=== PATIENT | female | born 1980 | race Caucasian/White ===

== ENCOUNTER 2018-06-02 03:54 | Emergency (ER) | payer BC ==
[2018-06-02 04:19] VITALS: TEMP 98.5; O2SAT 98
[2018-06-02] MEDS ORDERED: Sodium Chloride 0.9% 1,000 ML IV STA (04:35)
--- NOTE | 2018-06-02 04:57 | ED PDOC ---
HPI: Female Pain Time Seen by Provider: 06/02/18 04:33 Chief Complaint (Nursing): Female Genitourinary Chief Complaint (Provider): Vaginal Bleeding History Per: Patient History/Exam Limitations: no limitations Onset/Duration Of Symptoms: Hrs (x6) Current Symptoms Are (Timing): Still Present Additional Complaint(s): Patient is a 37 year old female who presents to the ED for evaluation of irregular vaginal bleeding x6 hours. Patient reports her LMP was 05/13/18, how ever only lasted two days when her cycle usually lasts 4-5. Patient reports last night she developed sudden onset of heavy vaginal bleeding that is described as "clots". Patient reports her cycle is normally regular, coming every 30 days. Patient reports mild lower abdominal cramping. Took no medications [employer]. No other complaints. PMD: [facility] in [place] Past Medical History Reviewed: Historical Data, Nursing Documentation, Vital Signs Vital Signs: Last Vital Signs Temp 98.5 F 06/02/18 04:16 Pulse 88 06/02/18 04:16 Resp 14 06/02/18 04:16 BP 112/79 06/02/18 04:16 Pulse Ox 98 06/02/18 04:16 - Medical History PMH: No Chronic Diseases - Surgical History Surgical History: No Surg Hx - Family History Family History: States: Unknown Family Hx - Social History Current smoker - smoking cessation education provided: No Alcohol: None Drugs: Denies - Home Medications Home Medications: Ambulatory Orders Medication Instructions Recorded RX: Naproxen 500 mg PO BID PRN #20 tab 06/02/18 - Allergies Allergies/Adverse Reactions: Allergies Allergy/AdvReac Type Severity Reaction Status Date / Time No Known Allergies Allergy Verified 06/02/18 04:16 Review of Systems ROS Statement: Except As Marked, All Systems Reviewed And Found Negative Gastrointestinal: Positive for: Abdominal Pain (lower) Genitourinary Female: Positive for: Vaginal Bleeding Physical Exam - Reviewed Nursing Documentation Reviewed: Yes Vital Signs Reviewed: Yes - Physical Exam Appears: Positive for: Well, Non-toxic, No Acute Distress Head Exam: Positive for: ATRAUMATIC, NORMOCEPHALIC Skin: Positive for: Normal Color, Warm, Dry Eye Exam: Positive for: Normal appearance ENT: Positive for: Other (Mucus membranes moist. Airway patent, (-) stridor. ) Neck: Positive for: Painless ROM, Supple Cardiovascular/Chest: Positive for: Regular Rate, Rhythm Respiratory: Positive for: Normal Breath Sounds Gastrointestinal/Abdominal: Positive for: Soft, Tenderness (mild suprapubic). Negative for: Mass, Distended, Guarding Back: Negative for: L CVA Tenderness, R CVA Tenderness, Vertebral Tenderness Extremity: Positive for: Normal ROM. Negative for: Deformity Neurologic/Psych: Positive for: Alert, Oriented (x3), Gait (steady in ED). Negative for: Aphasia, Facial Droop - Laboratory Results Result Diagrams: 06/02/18 04:59 06/02/18 04:59 Urine POC: Negative - ECG O2 Sat by Pulse Oximetry: 98 (RA) Pulse Ox Interpretation: Normal Medical Decision Making Medical Decision Making: Initial Impression: irregular vaginal bleeding Plan: IV access CBC CMP Type and Screen TV U/S U/A Upreg Toradol 30mg IVP 1L NS bolus 0455 Patient in U/S. 06:25 US Transvaginal reviewed, USArad report follows Findings: The uterus measures 12x4.1x3.2 cm. Anteverted uterus. Heterogeneous uterus. Thickened endometrial cavity containing a heterogeneous echogenic material, probably clots. Normal right ovary. Normal left ovary. Impression: Hemorrhagic fluid/blood clots in endometrial cavity. Mildly heterogeneous uterus. Normal ovaries without evidence of ovarian torsion. No evidence of intrauterine . 0700 U/A (+) hematuria (consistent with reports of vaginal bleeding) CBC and CMP unremarkable. H&H stable. On re-evaluation, patient reports improvement of symptoms. On exam, patient remains AAOx3, in no acute distress. Lungs clear to auscultation, cardiac RRR, abdomen soft, non-tender, repeat neuro exam shows no focal findings. Vitals stable. Lab/Diagnostic results d/w the patient in great detail. Diagnosis of irregular menses d/w the patient. Based on history, exam and diagnostic results, plan will be for outpatient follow up with OBGYN. Patient instructed to follow-up with pmd / referral provided / the clinic in 1- 2 days without fail. Advised to take medication as prescribed. Return to the emergency room at any time for any new or worsening symptoms. Patient states she fully agrees with and understands discharge instructions. States that she agrees with the plan and disposition. Verbalized and repeated discharge instructions and plan. I have given the patient opportunity to ask any additional questions. Disposition - Clinical Impression Clinical Impression: Irregular menses, Menstrual cramps - Patient ED Disposition Is Patient to be Admitted: No Counseled Patient/Family Regarding: Studies Performed, Diagnosis, Need For Followup, Rx Given - Disposition Referrals: your, OBGYN [Other] [facility] [Outside] Disposition: Routine/Home Disposition Time: 07:00 Condition: STABLE Additional Instructions: The emergency medical care you received today was directed at your acute symptoms. If you were prescribed any medication, please fill it and take as directed. It may take several days for your symptoms to resolve. Return to the Emergency Department if your symptoms worsen, do not improve, or if you have any other problems. Please contact your doctor in 2 days for re-evaluation and follow up / or call one of the physicians/clinics you have been referred to that are listed on the Patient Visit Information form that is included in your discharge packet. Bring any paperwork you were given at discharge with you along with any medications you are taking to your follow up visit. Our treatment cannot replace ongoing me dical care by a primary care provider (PCP) outside of the emergency department. Prescriptions: RX: Naproxen 500 mg PO BID PRN #20 tab PRN Reason: Pain, Moderate (4-7) Instructions: Absent or Irregular Periods, Menstrual Cramps (DC) Forms: [employer] (Gabonese) Print Language: NIUEAN - POA Present On Arrival: None Results - Lab Results Lab Results: 06/02/18 06/02/18 06/02/18 04:59 04:59 04:54 WBC 8.4 RBC 4.79 Hgb 13.2 Hct 39.4 MCV 82.3 MCH 27.6 MCHC 33.5 RDW 14.0 Plt Count 287 MPV 8.3 Neut % (Auto) 49.2 L Lymph % (Auto) 38.0 [place] % (Auto) 7.9 Eos % (Auto) 4.0 Baso % (Auto) 0.9 Neut # (Auto) 4.2 Lymph # (Auto) 3.2 [place] # (Auto) 0.7 Eos # (Auto) 0.3 Baso # (Auto) 0.1 Sodium 141 Potassium 4.5 Chloride 100 Carbon Dioxide 31 H Anion Gap 15 BUN 14 Creatinine 0.9 Est GFR ( Amer) > 60 Est GFR (Non-Af Amer) > 60 Random Glucose 96 Calcium 9.4 Total Bilirubin 0.2 AST 23 ALT 23 Alkaline Phosphatase 80 Total Protein 8.0 Albumin 4.3 Globulin 3.7 Albumin/Globulin Ratio 1.1 Urine Color Yellow Urine Clarity Slighty-cloudy Urine pH 7.0 Ur Specific [place] 1.010 Urine Protein Negative Urine Glucose (UA) Neg Urine Ketones Negative Urine Blood Large Urine Nitrate Negative Urine Bilirubin Negative Urine Urobilinogen 0.2-1.0 Ur Leukocyte Esterase Small Urine RBC (Auto) 620 H Urine Microscopic WBC 10 H Ur Squamous Epith Cells 2 Urine Bacteria Rare
[2018-06-02 05:17] LABS: SQUAMOUS EPITHIAL 2 /hpf (0-5); URINE BACTERIA RARE (<OCC); URINE BILIRUBIN NEGATIVE (NEGATIVE); URINE BLOOD LARGE (NEGATIVE); URINE CLARITY SLIGHTY-CLOUDY (Clear); URINE COLOR YELLOW (YELLOW); URINE GLUCOSE (UA) NEG (NEGATIVE); URINE LEUKOCYTE ESTERASE SMALL Leu/uL (Negative); URINE PROTEIN NEGATIVE (NEGATIVE); URINE UROBILINOGEN 0.2-1.0 mg/dL (0.2-1.0)
[2018-06-02 06:45] LABS: BASO # 0.1 K/uL (0.0-0.2); BASO % 0.9 % (0.0-2.0); EOS # 0.3 K/uL (0.0-0.7); HEMOGLOBIN 13.2 g/dL (12.0-16.0); LYMPH # 3.2 K/uL (1.0-4.3); MEAN CELL VOLUME 82.3 fl (81.0-99.0); MEAN CORPUSCULAR HEMOGLOBIN 27.6 pg (27.0-31.0); MEAN CORPUSCULAR HGB CONC 33.5 g/dL (33.0-37.0); MEAN PLATELET VOLUME 8.3 fl (7.2-11.7); MONO # 0.7 K/uL (0.0-0.8); MONO % 7.9 % (0.0-10.0); NEUT # 4.2 K/uL (1.8-7.0); NEUT % 49.2 % (50.0-75.0); NRBC % 0.2 % (0.0-0.0); RBC 4.79 Mil/uL (3.80-5.20); WHITE BLOOD COUNT 8.4 K/uL (4.8-10.8)
[2018-06-02 06:54] LABS: ALB/GLOB RATIO 1.1 (1.0-2.1); ALBUMIN 4.3 g/dL (3.5-5.0); ALT/SGPT 23 U/L (9-52); AST/SGOT 23 U/L (14-36); BLOOD UREA NITROGEN 14 mg/dl (7-17); CALCIUM 9.4 mg/dL (8.4-10.2); GFR NON-AFRICAN AMERICAN > 60
[2018-06-02 06:57] VITALS: BP 90/50; PULSE 92; RESP 20
--- NOTE | 2018-06-02 16:52 | US ---
Date of service: 06/02/2018 HISTORY: irregular vaginal bleeding COMPARISON: None available. TECHNIQUE: FINDINGS: UTERUS: Measures 12.0 x 4.1 x 3.2 cm. Normal in size and appearance, anteverted. No fibroid or other mass lesion seen. ENDOMETRIUM: Measures 1.0 mm in diameter. Heterogeneous echotexture seen within the endometrial cavity could reflect retained blood products as the appearance is predominate hypoechoic. Clinically correlate further as other etiologies are possible. CERVIX: No cervical abnormality identified. RIGHT OVARY: Measures 2.5 x 2.8 x 2.0 cm. No solid mass. Normal flow. LEFT OVARY: Measures 2.9 x 3.0 x 1.7 cm. No solid mass. Normal flow. FREE FLUID: No significant free fluid noted. OTHER FINDINGS: None. IMPRESSION: Potential hemorrhagic products within the endometrial cavity with the uterus and cervix otherwise unremarkable. No suspicious adnexal findings.
== END 2018-06-02 06:55 | disposition home or self-care (01) ==
LOC: H.ER 03:54
DX: N92.6 Irregular menstruation, unspecified (principal); N94.6 Dysmenorrhea, unspecified